=== PATIENT | male | born 1965 | race American Indian/Alaskan Native ===

== ENCOUNTER 2018-01-02 15:55 | Emergency (ER) | payer OTHER ==
--- NOTE | 2018-01-02 16:47 | Emergency Department Report ---
ED General Adult HPI - General Chief complaint: Altered Mental Status Stated complaint: DEHYDRATION Time Seen by Provider: 01/02/18 16:41 Source: patient Mode of arrival: Wheelchair Limitations: Physical Limitation - History of Present Illness Initial comments: This is a 52-year-old male who is unknown to this provider previously, recently admitted to [facility] for a cerebellar stroke December 25 through December 26, reports issues with coordination since his event, reports been wheelchair dependent, is brought to the hospital by EMS after he was seen really his wheelchair on the side of the road without any complaints. The patient specifically denies headache, neck pain, chest pain, abdominal pain, shortness of breath. He denies urinary symptoms. He has no medical complaints at this time. He further reports that he knows how to get to the train station to go To. He is able to describe his pathway. He also indicates he does not require refills on his prescriptions. Improves with: none Worsens with: none Associated Symptoms: denies other symptoms - Related Data Allergies Allergy/AdvReac Type Severity Reaction Status Date / Time No Known Allergies Allergy Verified 01/02/18 16:27 ED Review of Systems ROS: Stated complaint: DEHYDRATION Other details as noted in HPI Comment: All other systems reviewed and negative Constitutional: denies: fever Eyes: denies: eye discharge ENT: denies: epistaxis Respiratory: denies: cough Cardiovascular: denies: chest pain Gastrointestinal: denies: abdominal pain Genitourinary: denies: dysuria Neurological: weakness (SINCE stroke) ED Past Medical Hx - Past Medical History Previous Medical History?: Yes Hx Hypertension: Yes Hx CVA: Yes - Surgical History Past Surgical History?: No - Social History Smoking Status: Never Smoker Substance Use Type: None ED Physical Exam - General Limitations: Physical Limitation General appearance: alert, in no apparent distress - Head Head exam: Present: atraumatic, normocephalic - Eye Eye exam: Present: normal appearance, EOMI, other (visual acuity intact to finger counting, color perception, reading at a close distance). Absent: nystagmus - ENT ENT exam: Present: normal exam, normal orophraynx, mucous membranes moist, normal external ear exam - Neck Neck exam: Present: normal inspection, full ROM - Respiratory Respiratory exam: Present: normal lung sounds bilaterally. Absent: respiratory distress - Cardiovascular Cardiovascular Exam: Present: regular rate, normal rhythm, normal heart sounds. Absent: bradycardia, tachycardia, irregular rhythm, systolic murmur, diastolic murmur, rubs, gallop - GI/Abdominal GI/Abdominal exam: Present: soft, normal bowel sounds. Absent: distended, tenderness, guarding, rebound, rigid, pulsatile mass - Rectal Rectal exam: Present: deferred - Extremities Exam Extremities exam: Present: normal inspection, full ROM, normal capillary refill , other (2+ pulses noted in the bilateral upper, lower extremities. Compartments soft. No long bony tenderness. The pelvis is stable.). Absent: tenderness, pedal edema, joint swelling, calf tenderness - Back Exam Back exam: Present: normal inspection, full ROM. Absent: tenderness, CVA tenderness (R), paraspinal tenderness, vertebral tenderness - Neurological Exam Neurological exam: Present: alert, oriented X3, CN II-XII intact, other ( Extraocular movements intact. Tongue midline. No facial droop. Facial sensation intact to light touch in the V1, V2, V3 distribution bilaterally. 5 and 5 strength in 4 extremities.. Sensation is intact to light touch in 4 extremities.). Absent: motor sensory deficit - Psychiatric Psychiatric exam: Present: normal affect, normal mood - Skin Skin exam: Present: warm, dry, intact, normal color. Absent: rash ED Course Vital Signs 01/02/18 16:27 Temperature 97.9 F Pulse Rate 95 H Respiratory 16 Rate Blood Pressure 108/74 O2 Sat by Pulse 97 Oximetry ED Medical Decision Making - Lab Data Result diagrams: 01/02/18 17:00 01/02/18 16:51 Vital Signs 01/02/18 16:27 Temperature 97.9 F Pulse Rate 95 H Respiratory 16 Rate Blood Pressure 108/74 O2 Sat by Pulse 97 Oximetry Lab Results 01/02/18 01/02/18 01/02/18 Range/Units 16:45 16:51 17:00 WBC 9.9 (4.5-11.0) K/mm3 RBC 5.76 H (3.65-5.03) M/mm3 Hgb 15.5 H (11.8-15.2) gm/dl Hct 48.3 H (35.5-45.6) % MCV 84 (84-94) fl MCH 27 L (28-32) pg MCHC 32 (32-34) % RDW 15.3 H (13.2-15.2) % Plt Count 199 (140-440) K/mm3 POC Glucose 93 (70-105) Plasma/Serum Alcohol < 0.01 (0-0.07) % - EKG Data -: EKG Interpreted by Me EKG shows normal: sinus rhythm, axis, intervals Rate: normal - EKG Data When compared to previous EKG there are: previous EKG unavailable 01/02/18 17:29 Sinus, 92 bpm, normal axis, normal intervals, motion artifact, poor progression , v 5 limited secondary to motion artifact, not having chest pain, not a STEMI. - Medical Decision Making Differential diagnosis, including but not limited to: Subacute cerebellar stroke , subacute ataxia, known, medical clearance, electrolyte derangement, dehydration Assessment and plan: 52-year-old male with a known history of cerebellar stroke , typically dependent on a wheelchair, with no complaints at this time, able to articulate how he is going to get to a local [employer], exhibits decision-making capacity, who was found rolling his wheelchair on the side of the road in extreme heat. He is not hyperthermic, and we will check creatinine kinase and basic electrolytes; if unremarkable, patient wishes to be discharged to follow- up. Critical care attestation.: If time is entered above; I have spent that time in minutes in the direct care of this critically ill patient, excluding procedure time. ED Disposition Clinical Impression: General medical exam Disposition: DC-01 TO HOME OR SELFCARE Is pt being admited?: No Does the pt Need Aspirin: No Condition: Stable Instructions: Heatstroke (ED), Dizziness (ED) Additional Instructions: Continue current outpatient medications that were prescribed to him from [facility]. Make certain to drink plenty of water while in the extreme heat. Make certain to take shade and cooled areas during times of extreme. Return to the ER right away with lethargy, irritability, projectile vomiting, change in mental status, confusion, inability to tolerate liquid feedings. Referrals: PRIMARY CARE, [Primary Care Provider] - 3-5 Days GINO BEAVER MD [Referring] - 3-5 Days FLOR SHEA MD [Staff Physician] - 3-5 Days SUNITA KOWALSKI MD [Staff Physician] - 3-5 Days
[2018-01-02 17:11] LABS: Hematocrit 48.3 % (35.5-45.6); Hemoglobin 15.5 gm/dl (11.8-15.2); Mean Corpuscular HGB Conc 32 % (32-34); Mean Corpuscular Hemoglobin 27 pg (28-32); Mean Corpuscular Volume 84 fl (84-94); Platelet Count 199 K/mm3 (140-440); Red Blood Count 5.76 M/mm3 (3.65-5.03); Red Cell Distribution Width 15.3 % (13.2-15.2)
[2018-01-02 17:27] LABS: Alanine Aminotransferase 13 units/L (7-56); Albumin 3.8 g/dL (3.9-5); BUN/Creatinine Ratio 16; Blood Urea Nitrogen 19 mg/dL (9-20); Calcium 9.8 mg/dL (8.4-10.2); Hemolysis Index 7
[2018-01-05 16:31] VITALS: BP 145/89
== END 2018-01-05 13:35 | disposition home or self-care (01) ==
LOC: ED 15:55 → EEVIPCON 15:55 → ED 01-05 13:35
DX: R41.82 Altered mental status, unspecified (principal); I10 Essential (primary) hypertension; Z86.73 Personal history of transient ischemic attack (TIA), and cerebral infarction without residual deficits
CPT/HCPCS: 36415; 80053; 82550; 82962; 85027; 93005; 93010; 99284; G0480; 80320